=== PATIENT | male | born 1945 | race Caucasian/White ===

== ENCOUNTER 2021-03-08 13:28 | Inpatient (IN) ==
[2021-03-08] MEDS ORDERED: Naloxone 0.4 MG/ML INJ IVP PRN (17:05)
[2021-03-08] MEDS ORDERED: Melatonin 3 MG TABLET PO PRN (17:05)
[2021-03-08] MEDS ORDERED: Ondansetron 4 MG/2 ML VIAL IVP PRN (17:05)
[2021-03-08] MEDS ORDERED: Acetaminophen 325 MG TABLET PO PRN (17:05)
[2021-03-08] MEDS ORDERED: *HR* Dextrose 50 % in Water (Vial) 50 ML VIAL IVP PRN (17:10)
[2021-03-08] MEDS ORDERED: Dextrose Gel 15 GM/37.5 ML TUBE PO PRN ×2 (17:10)
[2021-03-08] MEDS ORDERED: D5% in Water 1,000 ML IVC PRN (17:10)
[2021-03-08] MEDS: Furosemide 20 MG TABLET PO SCH (18:29)
[2021-03-08] MEDS ORDERED: Nicotine 2 MG GUM BC PRN (18:53)
[2021-03-08] MEDS: Insulin LISPRO 300 UNITS/3 ML VIAL SUBQ SCH (20:39)
[2021-03-08] MEDS: Nicotine 21 MG PATCH.TD24 TD SCH (20:44)
[2021-03-08] MEDS: Albuterol 2.5 MG/3 ML NEBULIZER IH PRN (22:16)
[2021-03-09 00:58] LABS: Hematocrit 39.5 % (37.5-50.1); Mean Corpuscular HGB Conc 32.4 g/dL (31.6-35.5); Mean Corpuscular Hemoglobin 33.1 pg (28.0-33.3); Mean Corpuscular Volume 102.1 fL (83.0-100.0); Platelet Count 126 K/mcL (140-400); Red Blood Count 3.87 M/mcL (4.19-5.50); White Blood Count 6.9 K/mcL (4.3-11.1)
[2021-03-09 01:03] LABS: Hemoglobin 12.8 g/dL (12.9-16.9)
[2021-03-09 01:06] LABS: INR 1.1
[2021-03-09 01:22] LABS: Albumin 2.6 g/dL (3.5-5.7); Albumin/Globulin Ratio 0.7 (1.1-2.2); Bilirubin,Direct 0.3 mg/dL (0.0-0.2); Bilirubin,Indirect 0.7 mg/dL (0.0-1.0); Globulin 3.6 g/dL (2.4-3.5); Magnesium 2.1 mg/dL (1.6-2.6); Phosphorous 2.9 mg/dL (2.7-4.5); Potassium 4.1 mEq/L (3.5-5.1); Total Protein 6.2 g/dL (6.4-8.9)
[2021-03-09] MEDS: *HR* Heparin 5,000 UNIT/ML VIAL SQ SCH ×2 (05:31→17:43)
[2021-03-09] MEDS: Insulin LISPRO 300 UNITS/3 ML VIAL SUBQ SCH ×4 (09:03→20:15)
[2021-03-09] MEDS: cefTRIAXone 2,000 MG in Water for inj. (sterile) 20 ML IVP SCH (09:03)
[2021-03-09] MEDS: Nicotine 21 MG PATCH.TD24 TD SCH (09:03)
[2021-03-09] MEDS: Furosemide 20 MG TABLET PO SCH ×2 (09:04→17:43)
[2021-03-09] MEDS: Albuterol 2.5 MG/3 ML NEBULIZER IH PRN (10:07)
[2021-03-09] MEDS ORDERED: Ipratropium/Albuterol Neb 3 ML IH ONE (10:20)
[2021-03-09] MEDS: Ipratropium/Albuterol Neb 3 ML IH PRN ×2 (14:29→18:26)
[2021-03-09 18:46] LABS: % Iron Saturation 19 % (20-55); Iron 45 mcg/dL (65-175); Transferrin 166 mg/dL (203-362)
[2021-03-09 18:53] LABS: Hepatitis B Surface Antibody < 3.10 mIU/mL
[2021-03-09 19:04] LABS: Hepatitis B Surface Antigen Nonreactive (Nonreactive)
[2021-03-09 19:33] LABS: Hepatitis C Virus Antibody Nonreactive (Nonreactive)
[2021-03-10 00:39] LABS: Basophils % 0.6 %; Eosinophils # 0.1 K/mcL (0.0-0.6); Eosinophils % 1.3 %; Hemoglobin 11.9 g/dL (12.9-16.9); Immature Granulocytes % 0.2 % (0-4); Lymphocytes # 1.3 K/mcL (0.6-4.6); Lymphocytes % 21.5 %; Mean Corpuscular HGB Conc 33.1 g/dL (31.6-35.5); Mean Corpuscular Hemoglobin 33.5 pg (28.0-33.3); Mean Corpuscular Volume 101.4 fL (83.0-100.0); Mean Platelet Volume 11.6 fL (9.4-12.4); Monocytes # 0.7 K/mcL (0.0-1.3); Neutrophils # 4.1 K/mcL (1.6-8.9); Platelet Count 122 K/mcL (140-400); Red Blood Count 3.55 M/mcL (4.19-5.50); Red Cell Distribution Width 13.7 % (11.5-14.5); Segmented Neutrophils % 65.4 %; White Blood Count 6.2 K/mcL (4.3-11.1)
[2021-03-10 00:45] LABS: INR 1.1; Prothrombin Time 13.1 Seconds (9.4-12.1)
[2021-03-10 00:57] LABS: Albumin 2.6 g/dL (3.5-5.7); Albumin/Globulin Ratio 0.7 (1.1-2.2); Bilirubin,Total 0.8 mg/dL (0.3-1.0); Calcium 8.1 mg/dL (8.6-10.3); Globulin 3.5 g/dL (2.4-3.5); Potassium 3.7 mEq/L (3.5-5.1); Total Protein 6.1 g/dL (6.4-8.9)
[2021-03-10] MEDS: *HR* Heparin 5,000 UNIT/ML VIAL SQ SCH ×2 (06:00→16:47)
[2021-03-10] MEDS ORDERED: amLODIPine 5 MG TABLET PO SCH (09:00)
[2021-03-10] MEDS: Insulin LISPRO 300 UNITS/3 ML VIAL SUBQ SCH ×4 (09:05→20:26)
[2021-03-10] MEDS: cefTRIAXone 2,000 MG in Water for inj. (sterile) 20 ML IVP SCH (10:15)
[2021-03-10] MEDS: Nicotine 21 MG PATCH.TD24 TD SCH (10:16)
[2021-03-10] MEDS: Furosemide 20 MG TABLET PO SCH (10:16)
[2021-03-10] MEDS: Aspirin Enteric Coated 81 MG Tablet PO SCH (10:16)
[2021-03-10] MEDS: Metoprolol XL (24 HR) Succ 50 MG TAB.ER.24H PO SCH (10:17)
[2021-03-10] MEDS ORDERED: Albumin 25% 25gram/100mL 25 GM/100 ML IV.SOLN IVPB ONE (11:20)
[2021-03-10 16:42] LABS: Glucose,Peritoneal Fluid 203 mg/dL (No Ref Range); LDH,Peritoneal Fluid 87 Units/L (No Ref Range); Total Protein,Peritoneal Fluid < 2.0 g/dL
[2021-03-10 17:22] LABS: RBC,Peritoneal Fluid < 2000 RBC/mcL
[2021-03-10 18:06] LABS: Appearance of Peritoneal Fl CLEAR (Clear)
[2021-03-10 18:09] LABS: Basophils,Peritoneal Fluid 0 %; Eosinophils,Peritoneal Fluid 0 %
[2021-03-10] MEDS: Insulin DETEMIR 100 UNIT/ML X5UNITS SUBQ SCH (20:25)
[2021-03-11] MEDS: *HR* Heparin 5,000 UNIT/ML VIAL SQ SCH ×2 (05:29→16:46)
[2021-03-11] MEDS: Insulin LISPRO 300 UNITS/3 ML VIAL SUBQ SCH ×4 (07:30→20:58)
[2021-03-11] MEDS: Metoprolol XL (24 HR) Succ 50 MG TAB.ER.24H PO SCH (08:05)
[2021-03-11] MEDS: Furosemide 20 MG TABLET PO SCH (08:05)
[2021-03-11] MEDS: Aspirin Enteric Coated 81 MG Tablet PO SCH (08:05)
[2021-03-11] MEDS: cefTRIAXone 2,000 MG in Water for inj. (sterile) 20 ML IVP SCH (08:06)
[2021-03-11] MEDS: Nicotine 21 MG PATCH.TD24 TD SCH (08:06)
[2021-03-11 09:54] LABS: Basophils # 0.1 K/mcL (0.0-0.2); Basophils % 0.8 %; Eosinophils # 0.2 K/mcL (0.0-0.6); Eosinophils % 2.8 %; Hematocrit 40.2 % (37.5-50.1); Hemoglobin 13.1 g/dL (12.9-16.9); Immature Granulocytes % 0.2 % (0-4); Immature Platelets 9.6 % (1.1-6.1); Lymphocytes # 1.4 K/mcL (0.6-4.6); Lymphocytes % 22.5 %; Mean Corpuscular HGB Conc 32.6 g/dL (31.6-35.5); Mean Corpuscular Hemoglobin 33.2 pg (28.0-33.3); Monocytes # 0.6 K/mcL (0.0-1.3); Monocytes % 9.8 %; Neutrophils # 3.8 K/mcL (1.6-8.9); Platelet Count 127 K/mcL (140-400); Red Blood Count 3.94 M/mcL (4.19-5.50); Red Cell Distribution Width 13.8 % (11.5-14.5); Segmented Neutrophils % 63.9 %
[2021-03-11 10:10] LABS: Alanine Aminotransferase 15 Units/L (7-52); Albumin 2.9 g/dL (3.5-5.7); Albumin/Globulin Ratio 0.8 (1.1-2.2); Alkaline Phosphatase 111 Units/L (34-104); Aspartate Amino Transferase 42 Units/L (13-39); BUN/Creatinine Ratio 18 (6-26); Blood Urea Nitrogen 25 mg/dL (8-23); Calcium 8.3 mg/dL (8.6-10.3); Carbon Dioxide 27 mEq/L (23-29); Chloride 102 mEq/L (98-107); Globulin 3.5 g/dL (2.4-3.5); Glucose 168 mg/dL (70-105); Osmolality,Calculated 290 (280-300); Potassium 4.6 mEq/L (3.5-5.1); Sodium 136 mEq/L (136-145); Total Protein 6.4 g/dL (6.4-8.9); eGFR For African Americans > 60 (> 60); eGFR For Non-African Americans 50 (> 60)
[2021-03-11] MEDS: Insulin DETEMIR 100 UNIT/ML X5UNITS SUBQ SCH (21:01)
[2021-03-12 01:53] LABS: Immature Granulocytes % 0.3 % (0-4); Mean Corpuscular HGB Conc 33.3 g/dL (31.6-35.5); Mean Corpuscular Hemoglobin 33.9 pg (28.0-33.3); Mean Corpuscular Volume 101.8 fL (83.0-100.0); Mean Platelet Volume 11.8 fL (9.4-12.4)
[2021-03-12 01:55] LABS: Basophils % 0.6 %; Eosinophils # 0.2 K/mcL (0.0-0.6); Eosinophils % 2.7 %; Immature Platelets 8.4 % (1.1-6.1); Lymphocytes # 1.6 K/mcL (0.6-4.6); Lymphocytes % 24.8 %; Monocytes # 0.6 K/mcL (0.0-1.3); Monocytes % 9.8 %; Neutrophils # 3.9 K/mcL (1.6-8.9); Platelet Count 140 K/mcL (140-400); Red Blood Count 3.83 M/mcL (4.19-5.50); Red Cell Distribution Width 13.8 % (11.5-14.5); Segmented Neutrophils % 61.8 %; White Blood Count 6.3 K/mcL (4.3-11.1)
[2021-03-12 02:04] LABS: Alanine Aminotransferase 15 Units/L (7-52); Albumin 2.9 g/dL (3.5-5.7); Albumin/Globulin Ratio 0.8 (1.1-2.2); Alkaline Phosphatase 116 Units/L (34-104); Aspartate Amino Transferase 43 Units/L (13-39); BUN/Creatinine Ratio 21 (6-26); Bilirubin,Total 0.8 mg/dL (0.3-1.0); Blood Urea Nitrogen 29 mg/dL (8-23); Calcium 8.3 mg/dL (8.6-10.3); Carbon Dioxide 27 mEq/L (23-29); Chloride 102 mEq/L (98-107); Globulin 3.5 g/dL (2.4-3.5); Glucose 150 mg/dL (70-105); Osmolality,Calculated 291 (280-300); Potassium 4.3 mEq/L (3.5-5.1); Sodium 136 mEq/L (136-145); Total Protein 6.4 g/dL (6.4-8.9); eGFR For African Americans > 60 (> 60); eGFR For Non-African Americans 51 (> 60)
[2021-03-12] MEDS: *HR* Heparin 5,000 UNIT/ML VIAL SQ SCH (05:25)
[2021-03-12 07:21] VITALS: PULSE 77; O2SAT 93
[2021-03-12] MEDS: Insulin LISPRO 300 UNITS/3 ML VIAL SUBQ SCH ×2 (08:03→12:21)
[2021-03-12] MEDS: Nicotine 21 MG PATCH.TD24 TD SCH (09:12)
[2021-03-12] MEDS: Metoprolol XL (24 HR) Succ 50 MG TAB.ER.24H PO SCH (09:12)
[2021-03-12] MEDS: Aspirin Enteric Coated 81 MG Tablet PO SCH (09:13)
[2021-03-12] MEDS: Furosemide 20 MG TABLET PO SCH (09:13)
[2021-03-12] MEDS: cefTRIAXone 2,000 MG in Water for inj. (sterile) 20 ML IVP SCH (09:14)
[2021-03-12 10:55] LABS: ANA IgG by ELISA NONE DETECTED (None Detected)
[2021-03-12 11:23] VITALS: BP 142/70; TEMP 98.2
[2021-03-12 23:55] LABS: Fluid Source for Albumin ASCITES
[2021-03-13] MEDS ORDERED: levoFLOXacin 500 MG TABLET PO SCH (09:00)
[2021-03-14 09:57] LABS: Smooth Muscle Ab Titer IgG 1:40 (<1:20)
== END 2021-03-12 14:11 | disposition home or self-care (01) | DRG 433 ==
LOC: 3ANU → SUATTDRO 16:28 → 3BNU 03-10 23:33
PROVIDERS: ADMIT Internal Medicine; ATTEND General Practice

== ENCOUNTER 2021-04-02 16:03 | Observation (INO) ==
[2021-04-02 17:51] LABS: Bilirubin,Urine Negative (Negative); Blood,Urine Negative (Negative); Clarity,Urine Clear (Clear); Color,Urine Light-Yellow (Yellow); Glucose,Urine (UA) Normal (Normal); Hyaline Casts,Urine Many per lpf (None Seen); Ketones,Urine Negative (Negative); Leukocyte Esterase,Urine Trace (Negative); Mucus,Urine Few per lpf (None-Few); Nitrite,Urine Negative (Negative); Protein,Urine Negative (Neg-Trace); RBC,Urine 0-3 per hpf (0-3); Specific Gravity,Urine 1.011 (1.010-1.025); Squamous Epithelial Cell,Urine Few per hpf (None-Few); Urobilinogen,Urine Normal (Normal)
[2021-04-02 18:22] LABS: Albumin 3.3 g/dL (3.5-5.7); Albumin/Globulin Ratio 0.7 (1.1-2.2); Bilirubin,Total 1.4 mg/dL (0.3-1.0); Calcium 9.4 mg/dL (8.6-10.3); Globulin 4.6 g/dL (2.4-3.5); Total Protein 7.9 g/dL (6.4-8.9)
[2021-04-02] MEDS ORDERED: Azithromycin 250 MG TABLET PO ONE (19:00)
[2021-04-02] MEDS ORDERED: cefTRIAXone 1,000 MG in Water for inj. (sterile) 10 ML IVP ONE (19:00)
[2021-04-02 19:21] LABS: Basophils # 0.1 K/mcL (0.0-0.2); Basophils % 0.6 %; Eosinophils # 0.1 K/mcL (0.0-0.6); Eosinophils % 1.5 %; Hematocrit 39.5 % (37.5-50.1); Hemoglobin 13.9 g/dL (12.9-16.9); Immature Granulocytes % 1.5 % (0-4); Lymphocytes % 10.8 %; Mean Corpuscular HGB Conc 35.2 g/dL (31.6-35.5); Mean Corpuscular Hemoglobin 35.4 pg (28.0-33.3); Mean Corpuscular Volume 100.5 fL (83.0-100.0); Mean Platelet Volume 12.4 fL (9.4-12.4); Monocytes # 1.1 K/mcL (0.0-1.3); Monocytes % 12.5 %; Neutrophils # 6.5 K/mcL (1.6-8.9); Platelet Count 100 K/mcL (140-400); Red Blood Count 3.93 M/mcL (4.19-5.50); Red Cell Distribution Width 14.6 % (11.5-14.5); Segmented Neutrophils % 73.1 %; White Blood Count 8.9 K/mcL (4.3-11.1)
[2021-04-02 20:03] LABS: INR 1.1; Prothrombin Time 12.9 Seconds (9.4-12.1)
[2021-04-02 20:05] LABS: Activated Partial Thrombo Time 27.7 Seconds (26.0-36.0); Troponin I < 0.03 ng/mL (< 0.04)
[2021-04-02] MEDS: Nicotine 21 MG PATCH.TD24 TD SCH (20:32)
[2021-04-02] MEDS ORDERED: *HR* HYDROcodone/Acet 5/325 mg TABLET PO PRN (21:37)
[2021-04-02] MEDS ORDERED: Ondansetron 4 MG/2 ML VIAL IVP PRN (21:37)
[2021-04-02] MEDS ORDERED: Naloxone 0.4 MG/ML INJ IVP PRN (21:37)
[2021-04-02] MEDS ORDERED: Melatonin 3 MG TABLET PO PRN (21:37)
[2021-04-02] MEDS ORDERED: Acetaminophen 325 MG TABLET PO PRN (21:37)
[2021-04-02] MEDS ORDERED: Nicotine 2 MG GUM BC PRN (21:40)
[2021-04-02] MEDS ORDERED: Ringers Solution, Lactated 1,000 ML IVC SCH (21:45)
[2021-04-02] MEDS ORDERED: *HR* Dextrose 50 % in Water (Vial) 50 ML VIAL IVP PRN (21:58)
[2021-04-02] MEDS ORDERED: Dextrose Gel 15 GM/37.5 ML TUBE PO PRN ×2 (21:58)
[2021-04-02] MEDS ORDERED: D5% in Water 1,000 ML IVC PRN (21:58)
[2021-04-02 22:02] LABS: Albumin 3.1 g/dL (3.5-5.7)
[2021-04-02] MEDS: Cefepime HCl 1,000 MG in Water for inj. (sterile) 10 ML IVP SCH (23:21)
[2021-04-02] MEDS: *HR* Heparin 5,000 UNIT/ML VIAL SQ SCH (23:23)
[2021-04-03] MEDS: *HR* Heparin 5,000 UNIT/ML VIAL SQ SCH ×3 (05:31→20:39)
[2021-04-03] MEDS: Doxycycline 100 MG in 0.9 % Sodium Chloride Mini Bag 100 ML IVPB SCH ×2 (05:32→17:01)
[2021-04-03 05:55] LABS: INR 1.1; Prothrombin Time 13.1 Seconds (9.4-12.1)
[2021-04-03 05:59] LABS: Basophils % 0.7 %; Eosinophils # 0.2 K/mcL (0.0-0.6); Eosinophils % 2.8 %; Hematocrit 36.6 % (37.5-50.1); Immature Granulocytes % 0.3 % (0-4); Lymphocytes # 0.9 K/mcL (0.6-4.6); Lymphocytes % 14.3 %; Mean Corpuscular HGB Conc 35.5 g/dL (31.6-35.5); Mean Corpuscular Volume 98.7 fL (83.0-100.0); Mean Platelet Volume 11.6 fL (9.4-12.4); Monocytes # 0.8 K/mcL (0.0-1.3); Monocytes % 12.8 %; Neutrophils # 4.2 K/mcL (1.6-8.9); Platelet Count 122 K/mcL (140-400); Red Blood Count 3.71 M/mcL (4.19-5.50); Red Cell Distribution Width 14.5 % (11.5-14.5); Segmented Neutrophils % 69.1 %
[2021-04-03 06:32] LABS: Folate 9.6 ng/mL (3.0-16.0)
[2021-04-03 06:54] LABS: Albumin 2.7 g/dL (3.5-5.7); Albumin/Globulin Ratio 0.7 (1.1-2.2); Bilirubin,Total 1.2 mg/dL (0.3-1.0); Calcium 8.4 mg/dL (8.6-10.3); Globulin 3.7 g/dL (2.4-3.5); Magnesium 1.9 mg/dL (1.6-2.6); Phosphorous 3.9 mg/dL (2.7-4.5); Potassium 4.8 mEq/L (3.5-5.1); Total Protein 6.4 g/dL (6.4-8.9)
[2021-04-03] MEDS ORDERED: Furosemide 40 MG/4 ML VIAL IVP SCH (09:00)
[2021-04-03] MEDS: Insulin LISPRO 300 UNITS/3 ML VIAL SUBQ SCH ×3 (09:14→16:13)
[2021-04-03] MEDS: Cefepime HCl 1,000 MG in Water for inj. (sterile) 10 ML IVP SCH ×3 (09:18→23:59)
[2021-04-03] MEDS: Nicotine 21 MG PATCH.TD24 TD SCH ×2 (09:24→16:49)
[2021-04-03] MEDS: Aspirin Enteric Coated 81 MG Tablet PO SCH (09:25)
[2021-04-03] MEDS: Loratadine 10 MG TABLET PO SCH (09:25)
[2021-04-03] MEDS ORDERED: Albumin 25% 25gram/100mL 25 GM/100 ML IV.SOLN IVPB ONE (12:07)
[2021-04-03] MEDS ORDERED: Ipratropium/Albuterol Neb 3 ML IH PRN (12:09)
[2021-04-03 17:40] LABS: RBC,Peritoneal Fluid < 2000 RBC/mcL
[2021-04-03 17:41] LABS: Total Protein,Peritoneal Fluid 2.2 g/dL
[2021-04-03 19:35] LABS: Appearance of Peritoneal Fl CLEAR (Clear); Basophils,Peritoneal Fluid 0 %; Eosinophils,Peritoneal Fluid 0 %
[2021-04-03] MEDS ORDERED: Furosemide 40 MG TABLET PO SCH (21:00)
[2021-04-03] MEDS ORDERED: Insulin LISPRO 300 UNITS/3 ML VIAL SUBQ SCH (21:00)
[2021-04-03] MEDS ORDERED: Insulin DETEMIR 100 UNIT/ML X5UNITS SUBQ SCH (21:00)
[2021-04-04 03:07] VITALS: PULSE 93
[2021-04-04] MEDS: Doxycycline 100 MG in 0.9 % Sodium Chloride Mini Bag 100 ML IVPB SCH (05:31)
[2021-04-04] MEDS: *HR* Heparin 5,000 UNIT/ML VIAL SQ SCH (06:47)
[2021-04-04 07:26] VITALS: BP 118/48; TEMP 98.3; O2SAT 96
[2021-04-04] MEDS ORDERED: Furosemide 40 MG TABLET PO SCH (08:00)
[2021-04-04] MEDS: Cefepime HCl 1,000 MG in Water for inj. (sterile) 10 ML IVP SCH (08:28)
[2021-04-04] MEDS: Aspirin Enteric Coated 81 MG Tablet PO SCH (08:29)
[2021-04-04] MEDS: Loratadine 10 MG TABLET PO SCH (08:30)
[2021-04-04] MEDS: Insulin LISPRO 300 UNITS/3 ML VIAL SUBQ SCH (08:30)
[2021-04-04] MEDS: Nicotine 21 MG PATCH.TD24 TD SCH (08:31)
[2021-04-04] MEDS ORDERED: amLODIPine 5 MG TABLET PO SCH (09:00)
[2021-04-04] MEDS ORDERED: Metoprolol XL (24 HR) Succ 50 MG TAB.ER.24H PO SCH (09:00)
[2021-04-06 01:56] LABS: Fluid Source for Albumin PERITONEAL FL
== END 2021-04-04 10:12 | disposition home or self-care (01) ==
LOC: EMEROOARM 16:03 → 3BNU 16:03 → SUATTDRO 21:17 → 3BNU 22:05
PROVIDERS: ADMIT Family Medicine; ATTEND Internal Medicine

== ENCOUNTER 2021-04-16 16:36 | Observation (INO) ==
[2021-04-16 18:38] LABS: Basophils % 0.6 %; Eosinophils # 0.1 K/mcL (0.0-0.6); Eosinophils % 0.8 %; Hematocrit 41.1 % (37.5-50.1); Hemoglobin 14.1 g/dL (12.9-16.9); Immature Granulocytes % 0.3 % (0-4); Lymphocytes # 0.9 K/mcL (0.6-4.6); Lymphocytes % 12.9 %; Mean Corpuscular HGB Conc 34.3 g/dL (31.6-35.5); Mean Corpuscular Hemoglobin 34.5 pg (28.0-33.3); Mean Corpuscular Volume 100.5 fL (83.0-100.0); Mean Platelet Volume 11.5 fL (9.4-12.4); Monocytes # 0.9 K/mcL (0.0-1.3); Monocytes % 12.3 %; Neutrophils # 5.3 K/mcL (1.6-8.9); Platelet Count 147 K/mcL (140-400); Red Blood Count 4.09 M/mcL (4.19-5.50); Red Cell Distribution Width 14.7 % (11.5-14.5); Segmented Neutrophils % 73.1 %; White Blood Count 7.2 K/mcL (4.3-11.1)
[2021-04-16 19:20] LABS: BUN/Creatinine Ratio 42 (6-26); Blood Urea Nitrogen 64 mg/dL (8-23); Calcium 8.7 mg/dL (8.6-10.3); Carbon Dioxide 17 mEq/L (23-29); Chloride 106 mEq/L (98-107); Glucose 192 mg/dL (70-105); Osmolality,Calculated 294 (280-300); Potassium 6.8 mEq/L (3.5-5.1); Sodium 130 mEq/L (136-145); Troponin I < 0.03 ng/mL (< 0.04); eGFR For African Americans 55 (> 60); eGFR For Non-African Americans 45 (> 60)
[2021-04-16] MEDS ORDERED: *HR* Dextrose 50 % in Water (Vial) 50 ML VIAL IVP STA (19:38)
[2021-04-16] MEDS ORDERED: Insulin Human Regular 5 UNIT in 0.9 % Sodium Chloride 10 ML IV ONE (19:39)
[2021-04-16] MEDS ORDERED: Albuterol Neb 7.5 MG, Sodium Chloride for inhalation 12 ML IH ONE (19:39)
[2021-04-16 20:47] LABS: INR 1.1; Prothrombin Time 12.9 Seconds (9.4-12.1)
[2021-04-16 20:58] LABS: Albumin 2.6 g/dL (3.5-5.7); Albumin/Globulin Ratio 0.6 (1.1-2.2); Bilirubin,Direct 0.4 mg/dL (0.0-0.2); Bilirubin,Indirect 0.8 mg/dL (0.0-1.0); Bilirubin,Total 1.2 mg/dL (0.3-1.0); Globulin 4.6 g/dL (2.4-3.5); Total Protein 7.2 g/dL (6.4-8.9)
[2021-04-16 21:10] LABS: Potassium 5.9 mEq/L (3.5-5.1)
[2021-04-16] MEDS ORDERED: Ondansetron 4 MG/2 ML VIAL IVP PRN (23:16)
[2021-04-16] MEDS ORDERED: Naloxone 0.4 MG/ML INJ IVP PRN (23:16)
[2021-04-16] MEDS ORDERED: Acetaminophen 325 MG TABLET PO PRN (23:16)
[2021-04-16] MEDS ORDERED: Melatonin 3 MG TABLET PO PRN (23:16)
[2021-04-16] MEDS: Nicotine 21 MG PATCH.TD24 TD SCH (23:41)
[2021-04-17] MEDS ORDERED: D5% in Water 1,000 ML IVC PRN (00:17)
[2021-04-17] MEDS ORDERED: Dextrose Gel 15 GM/37.5 ML TUBE PO PRN ×2 (00:17)
[2021-04-17] MEDS ORDERED: *HR* Dextrose 50 % in Water (Vial) 50 ML VIAL IVP PRN (00:17)
[2021-04-17 01:00] LABS: Calcium 8.7 mg/dL (8.6-10.3); Potassium 5.5 mEq/L (3.5-5.1)
[2021-04-17] MEDS ORDERED: Calcium Gluconate 1gm/50mL 1 GM/50 ML BAG IVPB ONE (02:44)
[2021-04-17] MEDS: Furosemide 40 MG/4 ML VIAL IVP SCH (03:54)
[2021-04-17 06:06] LABS: Basophils % 0.3 %; Eosinophils # 0.1 K/mcL (0.0-0.6); Eosinophils % 0.9 %; Hematocrit 37.4 % (37.5-50.1); Hemoglobin 12.7 g/dL (12.9-16.9); Immature Granulocytes % 0.3 % (0-4); Lymphocytes # 1.1 K/mcL (0.6-4.6); Lymphocytes % 16.2 %; Mean Corpuscular Hemoglobin 34.6 pg (28.0-33.3); Mean Corpuscular Volume 101.9 fL (83.0-100.0); Mean Platelet Volume 11.1 fL (9.4-12.4); Monocytes # 0.8 K/mcL (0.0-1.3); Monocytes % 11.9 %; Neutrophils # 4.7 K/mcL (1.6-8.9); Platelet Count 151 K/mcL (140-400); Red Blood Count 3.67 M/mcL (4.19-5.50); Red Cell Distribution Width 14.8 % (11.5-14.5); Segmented Neutrophils % 70.4 %; White Blood Count 6.6 K/mcL (4.3-11.1)
[2021-04-17 06:12] LABS: INR 1.1
[2021-04-17 06:23] LABS: Albumin 2.8 g/dL (3.5-5.7); Albumin/Globulin Ratio 0.6 (1.1-2.2); Bilirubin,Direct 0.4 mg/dL (0.0-0.2); Bilirubin,Indirect 0.8 mg/dL (0.0-1.0); Bilirubin,Total 1.2 mg/dL (0.3-1.0); Calcium 8.9 mg/dL (8.6-10.3); Globulin 4.6 g/dL (2.4-3.5); Magnesium 2.4 mg/dL (1.6-2.6); Phosphorous 4.5 mg/dL (2.7-4.5); Potassium 5.7 mEq/L (3.5-5.1); Total Protein 7.4 g/dL (6.4-8.9)
[2021-04-17] MEDS: Insulin LISPRO 300 UNITS/3 ML VIAL SUBQ SCH ×3 (08:23→17:32)
[2021-04-17] MEDS: Nicotine 21 MG PATCH.TD24 TD SCH (08:24)
[2021-04-17] MEDS: Albumin 25% 25gram/100mL 25 GM/100 ML IV.SOLN IVPB SCH ×2 (11:42→21:02)
[2021-04-17] MEDS: Metoprolol XL (24 HR) Succ 50 MG TAB.ER.24H PO SCH (11:43)
[2021-04-17 12:22] LABS: Potassium 5.4 mEq/L (3.5-5.1)
[2021-04-17] MEDS ORDERED: Insulin DETEMIR 100 UNIT/ML X5UNITS SUBQ SCH (21:00)
[2021-04-17] MEDS ORDERED: Insulin LISPRO 300 UNITS/3 ML VIAL SUBQ SCH (21:00)
[2021-04-17] MEDS: Ammonium Lactate 30 APPL/225 GM BOTTLE TP SCH (21:13)
[2021-04-18] MEDS: Insulin LISPRO 300 UNITS/3 ML VIAL SUBQ SCH (06:54)
[2021-04-18 07:07] LABS: BUN/Creatinine Ratio 38 (6-26); Blood Urea Nitrogen 49 mg/dL (8-23); Calcium 9.2 mg/dL (8.6-10.3); Carbon Dioxide 21 mEq/L (23-29); Chloride 109 mEq/L (98-107); Glucose 96 mg/dL (70-105); Osmolality,Calculated 293 (280-300); Potassium 5.5 mEq/L (3.5-5.1); Sodium 135 mEq/L (136-145); eGFR For African Americans > 60 (> 60); eGFR For Non-African Americans 54 (> 60)
[2021-04-18] MEDS: Furosemide 40 MG/4 ML VIAL IVP SCH ×2 (08:49→09:00)
[2021-04-18] MEDS: Nicotine 21 MG PATCH.TD24 TD SCH (08:49)
[2021-04-18] MEDS: Metoprolol XL (24 HR) Succ 50 MG TAB.ER.24H PO SCH (08:49)
[2021-04-18] MEDS: Ammonium Lactate 30 APPL/225 GM BOTTLE TP SCH (08:50)
[2021-04-18] MEDS ORDERED: Loratadine 10 MG TABLET PO SCH (09:00)
[2021-04-18] MEDS ORDERED: Aspirin Enteric Coated 81 MG Tablet PO SCH (09:00)
[2021-04-18] MEDS ORDERED: Furosemide 40 MG TABLET PO SCH (09:15)
[2021-04-18 10:26] VITALS: BP 126/62; PULSE 75; TEMP 97.8; O2SAT 98
== END 2021-04-18 11:20 | disposition home or self-care (01) ==
LOC: 2ANU 16:36 → EMEROOARM 16:36 → SUATTDRO 21:53 → 2ANU 22:46
PROVIDERS: ADMIT Internal Medicine; ATTEND Internal Medicine

== ENCOUNTER 2021-05-08 09:57 | Inpatient (IN) ==
[2021-05-08] MEDS ORDERED: 0.9 % Sodium Chloride 1,000 ML IVC ONE (10:17)
[2021-05-08] MEDS ORDERED: Ondansetron 4 MG/2 ML VIAL IVP ONE (10:17)
[2021-05-08] MEDS ORDERED: Isovue-370 500 ML BOTTLE IVP ONE (11:01)
[2021-05-08 11:21] LABS: Basophils % 0.6 %; Eosinophils # 0.1 K/mcL (0.0-0.6); Hematocrit 44.3 % (37.5-50.1); Hemoglobin 15.1 g/dL (12.9-16.9); Immature Granulocytes % 0.7 % (0-4); Lymphocytes # 0.8 K/mcL (0.6-4.6); Lymphocytes % 11.5 %; Mean Corpuscular HGB Conc 34.1 g/dL (31.6-35.5); Mean Corpuscular Hemoglobin 33.6 pg (28.0-33.3); Mean Corpuscular Volume 98.7 fL (83.0-100.0); Mean Platelet Volume 11.9 fL (9.4-12.4); Monocytes # 0.8 K/mcL (0.0-1.3); Monocytes % 10.5 %; Neutrophils # 5.4 K/mcL (1.6-8.9); Nucleated Red Blood Cells 0.3 /100 WBC (0); Platelet Count 161 K/mcL (140-400); Red Blood Count 4.49 M/mcL (4.19-5.50); Red Cell Distribution Width 14.4 % (11.5-14.5); Segmented Neutrophils % 75.7 %; White Blood Count 7.2 K/mcL (4.3-11.1)
[2021-05-08 11:33] LABS: INR 1.1; Prothrombin Time 12.6 Seconds (9.4-12.1)
[2021-05-08 11:37] LABS: Albumin 2.7 g/dL (3.5-5.7); Albumin/Globulin Ratio 0.6 (1.1-2.2); Bilirubin,Total 1.4 mg/dL (0.3-1.0); Calcium 8.6 mg/dL (8.6-10.3); Globulin 4.5 g/dL (2.4-3.5); Potassium 4.8 mEq/L (3.5-5.1); Total Protein 7.2 g/dL (6.4-8.9)
[2021-05-08] MEDS ORDERED: Naloxone 0.4 MG/ML INJ IVP PRN (13:24)
[2021-05-08] MEDS ORDERED: Ondansetron 4 MG/2 ML VIAL IVP PRN (13:24)
[2021-05-08] MEDS ORDERED: D5% in Water 1,000 ML IVC PRN (13:28)
[2021-05-08] MEDS ORDERED: Dextrose Gel 15 GM/37.5 ML TUBE PO PRN ×2 (13:28)
[2021-05-08] MEDS ORDERED: *HR* Dextrose 50 % in Water (Vial) 50 ML VIAL IVP PRN (13:28)
[2021-05-08 13:33] LABS: Bacteria,Urine Few per hpf (None-Few); Bilirubin,Urine Negative (Negative); Blood,Urine Negative (Negative); Clarity,Urine Clear (Clear); Color,Urine Yellow (Yellow); Glucose,Urine (UA) Normal (Normal); Hyaline Casts,Urine Many per lpf (None Seen); Ketones,Urine Negative (Negative); Leukocyte Esterase,Urine Trace (Negative); Mucus,Urine Few per lpf (None-Few); Nitrite,Urine Negative (Negative); PH,Urine 5.5 pH Units (5.0-8.0); Protein,Urine Trace mg/dL (Neg-Trace); RBC,Urine 0-3 per hpf (0-3); Specific Gravity,Urine 1.016 (1.010-1.025); Squamous Epithelial Cell,Urine Few per hpf (None-Few); Urobilinogen,Urine Normal (Normal)
[2021-05-08 16:13] LABS: Estimated Average Glucose 197 mg/dl; Hemoglobin A1C 8.5 %
[2021-05-08 16:40] LABS: RBC,Peritoneal Fluid < 2000 RBC/mcL
[2021-05-08 17:21] LABS: Basophils,Peritoneal Fluid 0 %; Eosinophils,Peritoneal Fluid 0 %
[2021-05-08 17:22] LABS: Appearance of Peritoneal Fl CLEAR (Clear)
[2021-05-08] MEDS: cefTRIAXone 2,000 MG in Water for inj. (sterile) 20 ML IVP SCH (18:27)
[2021-05-08] MEDS: Nicotine 21 MG PATCH.TD24 TD SCH (18:28)
[2021-05-08] MEDS: Insulin LISPRO 300 UNITS/3 ML VIAL SUBQ SCH ×2 (18:31→20:34)
[2021-05-08] MEDS ORDERED: Albumin 25% 25gram/100mL 25 GM/100 ML IV.SOLN IVPB ONE (18:42)
[2021-05-08 23:45] LABS: Protein/Creatinine Ratio,Urine 0.2 mg/mg (0.00-0.20); Sodium, Urine 14.4 mEq/L
[2021-05-09 03:20] LABS: Basophils % 0.5 %; Eosinophils # 0.1 K/mcL (0.0-0.6); Eosinophils % 2.2 %; Hematocrit 42.4 % (37.5-50.1); Immature Granulocytes % 0.4 % (0-4); Lymphocytes # 0.8 K/mcL (0.6-4.6); Lymphocytes % 14.4 %; Mean Corpuscular Hemoglobin 33.7 pg (28.0-33.3); Mean Corpuscular Volume 101.9 fL (83.0-100.0); Mean Platelet Volume 11.8 fL (9.4-12.4); Monocytes # 0.6 K/mcL (0.0-1.3); Monocytes % 11.5 %; Neutrophils # 3.9 K/mcL (1.6-8.9); Platelet Count 116 K/mcL (140-400); Red Blood Count 4.16 M/mcL (4.19-5.50); Red Cell Distribution Width 14.4 % (11.5-14.5); White Blood Count 5.6 K/mcL (4.3-11.1)
[2021-05-09 03:51] LABS: Albumin 2.6 g/dL (3.5-5.7); Albumin/Globulin Ratio 0.7 (1.1-2.2); Bilirubin,Total 0.8 mg/dL (0.3-1.0); Calcium 8.1 mg/dL (8.6-10.3); Globulin 3.9 g/dL (2.4-3.5); Magnesium 2.5 mg/dL (1.6-2.6); Phosphorous 4.8 mg/dL (2.7-4.5); Potassium 4.1 mEq/L (3.5-5.1); Total Protein 6.5 g/dL (6.4-8.9)
[2021-05-09] MEDS: Insulin LISPRO 300 UNITS/3 ML VIAL SUBQ SCH ×4 (08:37→21:17)
[2021-05-09] MEDS ORDERED: Ipratropium/Albuterol Neb 3 ML IH PRN (10:38)
[2021-05-09] MEDS ORDERED: Nitroglycerin 0.4 MG TAB.SUBL SL PRN (10:38)
[2021-05-09] MEDS: Loratadine 10 MG TABLET PO SCH (12:33)
[2021-05-09] MEDS: Nicotine 21 MG PATCH.TD24 TD SCH (12:33)
[2021-05-09] MEDS: cefTRIAXone 2,000 MG in Water for inj. (sterile) 20 ML IVP SCH (15:27)
[2021-05-09] MEDS: Insulin DETEMIR 100 UNIT/ML X5UNITS SUBQ SCH (21:16)
[2021-05-09] MEDS: Albumin 25% 25gram/100mL 25 GM/100 ML IV.SOLN IVPB SCH (23:26)
[2021-05-10] MEDS: Albumin 25% 25gram/100mL 25 GM/100 ML IV.SOLN IVPB SCH ×3 (10:14→23:46)
[2021-05-10] MEDS: Metoprolol XL (24 HR) Succ 50 MG TAB.ER.24H PO SCH (10:15)
[2021-05-10] MEDS: Aspirin Enteric Coated 81 MG Tablet PO SCH (10:15)
[2021-05-10] MEDS: Insulin LISPRO 300 UNITS/3 ML VIAL SUBQ SCH ×4 (10:15→21:13)
[2021-05-10] MEDS: Loratadine 10 MG TABLET PO SCH (10:16)
[2021-05-10 10:41] LABS: Hematocrit 41.3 % (37.5-50.1); Hemoglobin 14.1 g/dL (12.9-16.9); Mean Corpuscular HGB Conc 34.1 g/dL (31.6-35.5); Mean Corpuscular Hemoglobin 33.9 pg (28.0-33.3); Mean Corpuscular Volume 99.3 fL (83.0-100.0); Platelet Count 121 K/mcL (140-400); Red Blood Count 4.16 M/mcL (4.19-5.50); Red Cell Distribution Width 14.3 % (11.5-14.5); White Blood Count 6.7 K/mcL (4.3-11.1)
[2021-05-10 10:59] LABS: Uric Acid 12.7 mg/dL (2.3-7.6)
[2021-05-10 11:15] LABS: Calcium 8.8 mg/dL (8.6-10.3); Potassium 4.4 mEq/L (3.5-5.1)
[2021-05-10] MEDS: cefTRIAXone 2,000 MG in Water for inj. (sterile) 20 ML IVP SCH (18:01)
[2021-05-10] MEDS: Nicotine 21 MG PATCH.TD24 TD SCH (18:08)
[2021-05-10] MEDS: Insulin DETEMIR 100 UNIT/ML X5UNITS SUBQ SCH (21:12)
[2021-05-11 08:04] VITALS: BP 113/67; PULSE 73; TEMP 97.6; O2SAT 97
[2021-05-11] MEDS: Loratadine 10 MG TABLET PO SCH (08:20)
[2021-05-11] MEDS: Aspirin Enteric Coated 81 MG Tablet PO SCH (08:20)
[2021-05-11] MEDS: Metoprolol XL (24 HR) Succ 50 MG TAB.ER.24H PO SCH (08:21)
[2021-05-11] MEDS: Albumin 25% 25gram/100mL 25 GM/100 ML IV.SOLN IVPB SCH (08:21)
[2021-05-11] MEDS: Insulin LISPRO 300 UNITS/3 ML VIAL SUBQ SCH (08:22)
[2021-05-11 08:56] LABS: Potassium 4.3 mEq/L (3.5-5.1)
[2021-05-11 08:57] LABS: Calcium 8.7 mg/dL (8.6-10.3)
== END 2021-05-11 14:18 | disposition home or self-care (01) | DRG 371 ==
LOC: 3NENU 09:57 → EMEROOARM 09:57 → SUATTDRO 14:32 → 3NENU 16:52
PROVIDERS: ADMIT Internal Medicine; ATTEND Internal Medicine